=== PATIENT | male | born 1985 | race Caucasian/White ===

== ENCOUNTER 2016-09-10 17:49 | Emergency (ER) | payer SELFPAY ==
[~2016-09-10] VITALS: Ht 167.6 cm; Wt 77.3 kg
[2016-09-10 17:54] VITALS: BP 145/84
== END 2016-09-10 19:56 | disposition home or self-care (01) ==
LOC: ED 17:49
DX: S83.92XA Sprain of unspecified site of left knee, initial encounter (principal); X58.XXXA Exposure to other specified factors, initial encounter; Y93.89 Activity, other specified; Y99.8 Other external cause status; Y92.89 Other specified places as the place of occurrence of the external cause

== ENCOUNTER 2018-07-24 22:40 | Emergency (ER) | payer SELFPAY ==
[~2018-07-24] VITALS: Ht 165.1 cm; Wt 74.8 kg
[2018-07-24 22:44] VITALS: Ht 165.1 cm; Wt 74.8 kg
[2018-07-24 23:11] VITALS: BP 156/52
== END 2018-07-24 23:11 | disposition home or self-care (01) ==
LOC: ED 22:40
DX: J02.9 Acute pharyngitis, unspecified (principal)